=== PATIENT | male | born 1995 | race Caucasian/White ===

== ENCOUNTER 2018-10-22 19:28 | Emergency (ER) | payer OTHER ==
[2018-10-22 20:05] VITALS: BP 128/76
--- NOTE | 2018-10-22 20:53 | UC ---
Hand/Wrist HPI - HPI Summary HPI Summary: Pt presents with c/o left wrist pain after playing hockey for [employer] yesterday and hand left wrist hit by another player. wrist is only painful if wrist is slightly twisted . - History Of Current Complaint Chief Complaint: UCUpperExtremity Stated Complaint: LT WRIST INJURY Time Seen by Provider: 10/22/18 20:13 Hx Obtained From: Patient ?: No Onset/Duration: Sudden Onset, Still Present Severity Initially: Mild Severity Currently: Mild Pain Intensity: 2 Character Of Pain: Dull, Aching Aggravating Factor(s): Movement, Twisting Alleviating Factor(s): Rest Associated Signs And Symptoms: Positive: Negative Related History: Dominant Hand Right - Risk Factors Compartment Syndrome Risk Factors: Pain - Allergies/Home Medications Allergies/Adverse Reactions: Allergies Allergy/AdvReac Type Severity Reaction Status Date / Time No Known Allergies Allergy Verified 10/22/18 20:01 Home Medications: Home Medications NK [No Home Medications Reported] 10/22/18 [History Confirmed 10/22/18] PMH/Surg Hx/FS Hx/Imm Hx Previously Healthy: Yes - Surgical History Surgical History: None - Family History Known Family History: Positive: Cardiac Disease - Social History Occupation: Student Lives: Dormitory/Roommates Alcohol Use: Rare Substance Use Type: None Smoking Status (MU): Never Smoked Tobacco Have You Smoked in the Last Year: No Review of Systems All Other Systems Reviewed And Are Negative: Yes Constitutional: Positive: Negative Skin: Positive: Negative Eyes: Positive: Negative ENT: Positive: Negative Respiratory: Positive: Negative Cardiovascular: Positive: Negative Gastrointestinal: Positive: Negative Genitourinary: Positive: Negative Motor: Positive: Negative Neurovascular: Positive: Negative Musculoskeletal: Positive: Myalgia Neurological: Positive: Negative Psychological: Positive: Negative Is Patient Immunocompromised?: No Physical Exam Triage Information Reviewed: Yes Appearance: Well-Appearing Vital Signs: Initial Vital Signs Temp 98.1 F 10/22/18 20:02 Pulse 57 10/22/18 20:02 Resp 16 10/22/18 20:02 BP 128/76 10/22/18 20:02 Pulse Ox 100 10/22/18 20:02 Vital Signs Reviewed: Yes Eye Exam: Normal ENT Exam: Normal Dental Exam: Normal Neck exam: Normal Respiratory: Positive: No respiratory distress Musculoskeletal Exam: Normal, Other - left distal ulna, slight swelling Neurological Exam: Normal Psychological Exam: Normal Skin Exam: Normal Hand/Wrist Course/Dx - Course Course Of Treatment: concern for wide space on xray of distal ulna and pisiform wide space. suggested comparison of right wrist xray. - Differential Dx/Diagnosis Differential Diagnosis/HQI/PQRI: Contusion, Sprain, Strain Provider Diagnosis: Left wrist sprain Discharge - Sign-Out/Discharge Documenting (check all that apply): Patient Departure All imaging exams completed and their final reports reviewed: No - Discharge Plan Condition: Stable Disposition: HOME Patient Education Materials: Wrist Injury (ED), R.I.C.E. Treatment (ED) Referrals: [facility] [Outside] Jenny Calderon MD [Medical Doctor] - If Needed No Primary Care Phys,NOPCP [Primary Care Provider] - - Billing Disposition and Condition Condition: STABLE Disposition: Home
--- NOTE | 2018-10-23 12:40 | ED ---
Progress - Progress Note Progress Note: Final xray read reviewed, and no change from wet read. Course/Dx - Course Course Of Treatment: concern for wide space on xray of distal ulna and pisiform wide space. suggested comparison of right wrist xray. - Diagnoses Provider Diagnoses: Left wrist sprain Discharge - Sign-Out/Discharge Documenting (check all that apply): Patient Departure All imaging exams completed and their final reports reviewed: Yes - Discharge Plan Condition: Stable Disposition: HOME Patient Education Materials: Wrist Injury (ED), R.I.C.E. Treatment (ED) Referrals: [facility] [Outside] Jenny Calderon MD [Medical Doctor] - If Needed No Primary Care Phys,NOPCP [Primary Care Provider] - - Billing Disposition and Condition Condition: STABLE Disposition: Home
== END 2018-10-22 21:01 | disposition home or self-care (01) ==
LOC: UCCORT 19:28
DX: S63.502A Unspecified sprain of left wrist, initial encounter (principal); W50.0XXA Accidental hit or strike by another person, initial encounter; Y93.65 Activity, lacrosse and field hockey; Y92.9 Unspecified place or not applicable
CPT/HCPCS: 99202; G0463

== ENCOUNTER 2019-10-09 21:38 | Emergency (ER) | payer OTHER ==
[2019-10-09 21:44] VITALS: BP 139/65
--- NOTE | 2019-10-09 21:45 | UC ---
Upper Extremity HPI - HPI Summary HPI Summary: Patient is a 23yo male presenting with girlfriend for complaint of R clavicle and anterior rib pain after colliding with another player in hockey game approximately 5 hours ago. Patient states pain is sharp and occurs with inspiration, deep breaths, and lifting things with his R arm. Notes pain radiates to his back directly behind the anterior rib pain. Notes mild swelling over clavicle. Denes bruising but notes redness over R clavicle. Denies shoulder pain. Denies decreased ROM. Denies SOB and difficulty breathing. Patient states he has iced with some relief of pain. Patient states he "thinks he is just bruised but the athletic trainers sent him for xrays." - History of Current Complaint Stated Complaint: RT SHOULDER INJURY Hx Obtained From: Patient Onset/Duration: Sudden Onset, Lasting Hours Severity Initially: Moderate Severity Currently: Moderate Pain Intensity: 4 Pain Scale Used: 0-10 Numeric - Allergies/Home Medications Allergies/Adverse Reactions: Allergies Allergy/AdvReac Type Severity Reaction Status Date / Time No Known Allergies Allergy Verified 10/09/19 21:45 PMH/Surg Hx/FS Hx/Imm Hx Previously Healthy: Yes - Surgical History Surgical History: Yes Surgery Procedure, Year, and Place: 02/09 reconstructive surgery on left wrist - Family History Known Family History: Positive: Cardiac Disease - Social History Occupation: Student Lives: Dormitory/Roommates Alcohol Use: Rare Substance Use Type: None Smoking Status (MU): Never Smoked Tobacco Have You Smoked in the Last Year: No Review of Systems All Other Systems Reviewed And Are Negative: No Skin: Positive: Other - erythema over R clavicle. Negative: Bruising Respiratory: Positive: Negative. Negative: Shortness Of Breath Cardiovascular: Positive: Negative Gastrointestinal: Positive: Negative Neurovascular: Positive: Negative Musculoskeletal: Positive: Arthralgia - R clavicle and R anterior ribs, Edema - R clavicle. Negative: Decreased ROM Neurological: Negative: Weakness, Paresthesia, Numbness Physical Exam Triage Information Reviewed: Yes Appearance: Well-Appearing, No Pain Distress, Well-Nourished Vital Signs: Initial Vital Signs Temp 98.6 F 10/09/19 21:42 Pulse 60 10/09/19 21:42 Resp 14 10/09/19 21:42 BP 139/65 10/09/19 21:42 Pulse Ox 100 11/16/19 21:42 Vital Signs Reviewed: Yes Eyes: Positive: Conjunctiva Clear ENT: Positive: Hearing grossly normal Neck: Positive: Supple Respiratory Exam: Normal Respiratory: Positive: Lungs clear, Normal breath sounds, No respiratory distress. Negative: Crackles, Rhonchi, Stridor, Wheezing Cardiovascular Exam: Normal Cardiovascular: Positive: RRR, Pulses Normal - strong radial pulses b/l Musculoskeletal: Positive: Strength Intact, ROM Intact - full ROM of R arm, Edema @ - mid-clavicle, Other: - mild tenderness to palpation of mid clavicle. patient notes mild pain in clavicl with forward flexion of R arm against resistance. no obvious clavicular deformity Neurological: Positive: Alert Psychological: Positive: Age Appropriate Behavior Skin: Positive: Other - erythema noted over mid clavicle extending inferiorly Diagnostics - Radiology R ribs Radiology Interpretation Completed By: ED Physician Summary of Radiographic Findings: negative fx R clavicle Radiology Interpretation Completed By: ED Physician Summary of Radiographic Findings: negative fx Upper Extremity Course/Dx - Course Course Of Treatment: Initial read of xrays is normal. Informed patient that official report will be obtained in the morning. 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 I instructed to call at 11am to receive time when he can do this. - Differential Dx/Diagnosis Provider Diagnosis: Contusion of clavicle, Contusion of rib on right side Discharge ED - Sign-Out/Discharge Documenting (check all that apply): Patient Departure All imaging exams completed and their final reports reviewed: No - Discharge Plan Condition: Stable Disposition: HOME Patient Education Materials: Contusion in Adults (ED) Additional Instructions: As discussed, your xrays were read by the provider who treated you tonight. The initial read is normal. An official report will be obtained in the morning by the radiologist. Continue with ice and ibuprofen for pain relief. You may call around 11am tomorrow to obtain the official report and ask when you are able to bean picker a copy of the official xray report. Call [phone] - Billing Disposition and Condition Condition: STABLE Disposition: Home
--- NOTE | 2019-10-10 08:38 | UC ---
- Progress Note Progress Note: reviewed report of imaging studies done for evaluation post injury. Wet read of no fracture ribs or clavicle; no fracture per Dr. Magallon. Indication: Pain at the right chest and clavicle following a hockey injury Comparison: None. Technique: AP and cephalad oblique views RIGHT clavicle and 4 view radiographs of the right ribs. Report: The right clavicle is intact and appropriately aligned with the acromion. There is no widening of the acromioclavicular joint space. Visualized bones of the right shoulder appear to be intact and anatomically aligned. There are no discernible rib fractures, displaced or otherwise. Right lung is adequately aerated. IMPRESSION: There is no fracture, dislocation or other radiographically apparent acute abnormality. R0 Preliminary Imaging Read R0 <Electronically signed by Anshu Magallon MD in [place]> 10/10/19818 Dictated By: Anshu Magallon MD Dictated Date/Time: 10/10/19815 Transcribed Date/Time: 10/10/19815 Copy to: CC:Jono Mooney MD; Anat ROTHMAN; No Primary Care Phys,NOPCP Imaging - [facility] Imaging - [facility] Imaging - [facility] [address] [address] ph ([phone]) ph ) ph ) This report is only to be considered final once signed by the Provider(s) as displayed in the "<Electronically Signed by >" field (s). Absence of a signature indicates the report is in a draft status and still needs to be finalized. In the event this document was created by someone other than the signing Provider, the individual initiating the document will be listed in the "Entered by:" or "Dictated by:" gramajo. 1 of 1 Course/Dx - Diagnoses Provider Diagnoses: Contusion of clavicle, Contusion of rib on right side Discharge ED - Sign-Out/Discharge Documenting (check all that apply): Patient Departure All imaging exams completed and their final reports reviewed: Yes - Discharge Plan Condition: Stable Disposition: HOME Patient Education Materials: Contusion in Adults (ED) Referrals: No Primary Care Phys,NOPCP [Primary Care Provider] - Additional Instructions: As discussed, your xrays were read by the provider who treated you tonight. The initial read is normal. An official report will be obtained in the morning by the radiologist. Continue with ice and ibuprofen for pain relief. You may call around 11am tomorrow to obtain the official report and ask when you are able to package pick up a copy of the official xray report. Call [phone] - Billing Disposition and Condition Condition: STABLE Disposition: Home
== END 2019-10-09 22:20 | disposition home or self-care (01) ==
LOC: UCCORT 21:38
DX: S40.011A Contusion of right shoulder, initial encounter (principal); S20.211A Contusion of right front wall of thorax, initial encounter; W51.XXXA Accidental striking against or bumped into by another person, initial encounter; Y93.22 Activity, ice hockey; Y92.9 Unspecified place or not applicable
CPT/HCPCS: 99211; G0463